=== PATIENT | female | born 1995 | race Caucasian/White ===

== ENCOUNTER 2017-11-13 15:27 | Emergency (ER) | payer SELFPAY ==
[2017-11-13 15:42] VITALS: BP 120/68
[2017-11-13 18:59] LABS: Bilirubin,Urine NEG (Negative); Blood,Urine NEG (Negative); Color,Urine Yellow (Yellow); Mucus,Urine 2+ /HPF; Protein,Urine <15 mg/dL mg/dL (Negative)
[2017-11-13 19:00] LABS: HCG Qualitative,Urine Negative (Negative)
== END 2017-11-13 16:30 | disposition left against medical advice (07) ==
LOC: ED 15:27
DX: R10.2 Pelvic and perineal pain (principal); Z53.21 Procedure and treatment not carried out due to patient leaving prior to being seen by health care provider
CPT/HCPCS: 81001; 81025